=== PATIENT | male | born 1975 ===

== ENCOUNTER → 2023-03-17 | Outpatient (CLI) | payer BC, OTHER | LOC: M WUC 13:51 | PROVIDERS: ATTEND Internal Medicine | DX: M54.50 Low back pain, unspecified (principal) ==

== ENCOUNTER → 2024-09-22 | Outpatient (REF) | payer OTHER | LOC: M LAB REF 13:29 | PROVIDERS: ATTEND Physician Assistant | DX: B34.9 Viral infection, unspecified (principal) ==